=== PATIENT | female | born 1975 | race Caucasian/White ===

== ENCOUNTER → 2018-11-22 | Outpatient (CLI) | payer BC ==
[2018-11-22 14:41] LABS: BILIRUBIN,URINE NEGATIVE (NEG); CLARITY,URINE CLOUDY; COLOR,URINE AMBER; NITRITE,URINE NEGATIVE (NEG); PROTEIN,URINE 30 mg/dL (NEG-TRACE); UROBILINOGEN,URINE 0.2 mg/dL (0.2 mg/dL)
[2018-11-22 14:54] LABS: BACTERIA,URINE MODERATE /HPF (0-FEW); SQUAMOUS EPITHELIAL CELL,UR OCC /LPF
[2018-11-22 14:54] LABS: BASO # 0.1 x10^3/uL (0.0-0.2); BASO % 1 % (0-3); EOS # 0.2 x10^3/uL (0.0-0.7); EOS % 2 % (0-3); HEMOGLOBIN 12.5 g/dL (12.0-15.5); LYMPH # 2.5 x10^3/uL (1.0-4.8); LYMPH % 22 % (24-48); MEAN CORPUSCULAR HEMOGLOBIN 30 pg (25-35); MEAN CORPUSCULAR HGB CONC 34 g/dL (31-37); MEAN CORPUSCULAR VOLUME 88 fL (79-100); MONO % 9 % (0-9); NEUT # 7.5 x10^3uL (1.8-7.7); NEUT % 67 % (31-73); PLATELET COUNT 422 x10^3/uL (140-400); RED BLOOD COUNT 4.22 x10^6/uL (3.50-5.40); WHITE BLOOD COUNT 11.3 x10^3/uL (4.0-11.0)
[2018-11-22 15:09] LABS: ALBUMIN 3.6 g/dL (3.4-5.0); ALBUMIN/GLOBULIN RATIO 0.8 (1.0-1.7); CREATININE 0.7 mg/dL (0.6-1.0); GFR 91.3; POTASSIUM 3.7 mmol/L (3.5-5.1); TOTAL BILIRUBIN 0.2 mg/dL (0.2-1.0)
== END | disposition home or self-care (01) ==
LOC: SURGPAT 14:09
PROVIDERS: ATTEND Obstetrics & Gynecology
DX: Z01.818 Encounter for other preprocedural examination (principal); Z90.710 Acquired absence of both cervix and uterus; Z88.2 Allergy status to sulfonamides
CPT/HCPCS: 36415; 80053; 81001; 85025; 87086

== ENCOUNTER 2018-11-29 06:51 | Observation (INO) | payer BC ==
[~2018-11-29] VITALS: Ht 157.5 cm; Wt 80.7 kg
[2018-11-29] MEDS ORDERED: ONDANSETRON PF 4 MG/2 ML VIAL. IV PRN ×2 (07:00→11:00)
[2018-11-29] MEDS ORDERED: MORPHINE SULFATE 4 MG/ML VIAL. IV PRN ×2 (07:00→11:00)
[2018-11-29] MEDS ORDERED: LIDOCAINE 1% PF 2 ML VIAL. ID PRN (07:00)
[2018-11-29] MEDS ORDERED: HYDROmorphone 2 MG/ML VIAL IV PRN (07:00)
[2018-11-29] MEDS ORDERED: PROCHLORPERAZINE 10 MG/2 ML VIAL. IV PRN (07:00)
[2018-11-29] MEDS ORDERED: fentaNYL PF VIAL 100 MCG/2 ML VIAL IV PRN ×2 (07:00)
[2018-11-29] MEDS ORDERED: IV RINGERS,LACTATED 1000ML 1,000 ML IV SCH (07:00)
[2018-11-29] MEDS ORDERED: BUPIVACAINE-EPI 0.25%-1:200000 MPF 30 ML VIAL. ONE (07:16)
[2018-11-29] MEDS ORDERED: ESTROGENS, CONJ VAGINAL CREAM 30GM TUBE. ONE (07:16)
[2018-11-29] MEDS ORDERED: METHYLENE BLUE 1% 10 ML VIAL. ONE (07:16)
[2018-11-29 07:54] LABS: U PREG PATIENT NEGATIVE (NEG)
[2018-11-29] MEDS ORDERED: ROCURONIUM 50 MG/5 ML VIAL. ONE (08:06)
[2018-11-29] MEDS ORDERED: PROPOFOL 20 ML IV ONE (08:06)
[2018-11-29] MEDS ORDERED: ONDANSETRON PF 4 MG/2 ML VIAL. ONE (08:06)
[2018-11-29] MEDS ORDERED: DEXAMETHASONE SOD PHOS 20 MG/5 ML VIAL. ONE (08:06)
[2018-11-29] MEDS ORDERED: LIDOCAINE 2% PF Vial for OR 5 ML VIAL. ONE (08:06)
[2018-11-29] MEDS ORDERED: MIDAZOLAM HCL/PF 2 MG/2 ML VIAL. ONE (08:07)
[2018-11-29] MEDS ORDERED: fentaNYL PF VIAL 100 MCG/2 ML VIAL ONE ×2 (08:07→10:33)
[2018-11-29] MEDS ORDERED: SCOPOLAMINE 1.5MG PATCH. TD ONE (08:30)
[2018-11-29] MEDS ORDERED: SEVOFLURANE 61 TO 120 MINUTES. IH ONE (09:35)
[2018-11-29] MEDS ORDERED: KETOROLAC 30 MG/ML INJ FOR OR. INJ ONE (09:35)
[2018-11-29] MEDS ORDERED: NEOSTIGMINE 10 MG/10 ML VIAL. ONE (09:39)
[2018-11-29] MEDS ORDERED: GLYCOPYRROLATE 1 MG/5 ML VIAL. ONE (09:39)
[2018-11-29] MEDS ORDERED: PHENYLEPHRINE 10 MG/ML VIAL. ONE (10:26)
--- NOTE | 2018-11-29 10:48 | PDOC ---
BRIEF OPERATIVE NOTE Date: Nov 29, 2018 Pre-Op Diagnosis DUB, menorrhagia, cervical mass Post-Op Diagnosis same Procedure Performed removal of cervical mass, LAVH with bilateral salpingectomy Surgeon Dr. Vicky Valenzuela Shift Supervisor [employer] Processing Saira Reyes Anesthesiologist Dr. Day Anesthesia Type: General Blood Loss 120cc IV Fluid 1L Urine Output 300cc clear Specimens Obtained cervix, uterus and bilateral tubes Findings 4cm cervical mass, slightly enlarged RV uterus, normal bilateral tubes and ovaries Complications none Operative Note [id number] VICKY VALENZUELA MD Nov 29, 2018 10:48
[2018-11-29] MEDS ORDERED: NALOXONE 0.4 MG/ML VIAL. IV PRN (11:00)
[2018-11-29] MEDS ORDERED: HYDROcodone/APAP 5/325MG 1 TAB TABLET PO PRN (11:00)
[2018-11-29] MEDS ORDERED: diphenhydrAMINE 50 MG/ML VIAL IV PRN (11:00)
[2018-11-29] MEDS ORDERED: SIMETHICONE 80 MG TAB.CHEW PO PRN (11:00)
[2018-11-29] MEDS ORDERED: MAGNESIUM HYDROXIDE 2,400 MG/30 ML ORAL.SUSP. PO PRN (11:00)
[2018-11-29] MEDS ORDERED: LACTULOSE 20 GM/30 ML SOLUTION. PO PRN (11:00)
[2018-11-29] MEDS ORDERED: CALCIUM CARBONATE 500 MG TAB.CHEW PO PRN (11:00)
[2018-11-29] MEDS ORDERED: ZOLPIDEM 5 MG TABLET. PO PRN (11:00)
[2018-11-29] MEDS ORDERED: 0.9 % SODIUM CHLORIDE 10 ML DISP.SYRIN. IV PRN (11:00)
[2018-11-29] MEDS ORDERED: diphenhydrAMINE HCL 25 MG CAPSULE PO PRN (11:00)
[2018-11-29] MEDS ORDERED: MAG HYDROX/ALUMINUM HYD/SIMETH 30 ML ORAL.SUSP PO PRN (11:00)
--- NOTE | 2018-11-29 11:08 | OP ---
DATE OF SURGERY: 11/29/2018 PREOPERATIVE DIAGNOSES: Dysfunctional uterine bleeding, menorrhagia and cervical mass. POSTOPERATIVE DIAGNOSES: Dysfunctional uterine bleeding, menorrhagia and cervical mass. PROCEDURE: Removal of cervical mass, laparoscopic assisted vaginal hysterectomy with bilateral salpingectomy. SURGEON: Lizett Valenzuela M.D. CEMENT DESPATCH OPERATOR: Saira Reyes. ANESTHESIOLOGIST: Dr. Day. ANESTHESIA: General. ESTIMATED BLOOD LOSS: 120 mL. INTRAVENOUS FLUIDS: 1 liter of crystalloid. URINE OUTPUT: 300 mL clear. FINDINGS: A 4 cm cervical mass, slightly enlarged retroverted uterus, normal bilateral tubes and ovaries. COMPLICATIONS: None. DESCRIPTION OF PROCEDURE: This patient was taken to the operating room where general anesthesia was placed. The patient was placed in a dorsal lithotomy position in [facility]. The patient's abdomen and vagina were prepped and draped in the normal sterile fashion and a Pastor catheter was inserted under sterile technique. Upon my arrival, a timeout was performed. A weighted speculum was placed in the patient's vagina. A single tooth tenaculum was used to grasp the cervical mass and twist it off. I had to do this a few times, but I was able to get rid of the cervical mass and it was passed off as a separate specimen. Once the cervical mass was removed, 10 mL of 0.25% Marcaine with epinephrine was used to circumferentially inject around the cervix and the Valtchev uterine manipulator was placed through the endocervical os, locked on the single tooth tenaculum and the weighted speculum was then removed. Top gloves were discarded and changed. Attention was turned to the abdomen where a small supraumbilical skin incision was made with the scalpel. A curved Cristin was used to dissect through the subcuticular layer to the fascia. The 5 mm Visiport was used to directly into the abdominal cavity. Opening patient pressure was 3-4 mmHg. Carbon dioxide gas was used to appropriately insufflate the abdominal cavity to maintain a pressure of 15 mmHg. The patient was placed in Trendelenburg position. Right and left lower quadrant ports were placed under direct visualization after transilluminating the abdominal wall, making a small incision where it was clear of any vasculature and placing the 5 mm disposable ports under direct visualization without difficulty. A 2 mL of air was placed in the cuff. At this point, the scope was removed and placed in one of the lateral ports to look at the umbilical port. Once it was assured to be in, 2 mL of air was used to insufflate this cuff as well. The left tube and ovary were elevated. The ureter was seen coursing well below the ovary, but we went above the ovary, below the tube, doing a salpingectomy on the left, then crossing the left uterine ovarian pedicle with the LigaSure and then crossing the left round ligament. This was done exactly the same on the right side, elevating the right tube and ovary, they were both normal, going above the ovary, below the tube, doing a salpingectomy, crossing the right uterine ovarian pedicle as well as the right round ligament. This was all done with the LigaSure, cauterizing and cutting with the LigaSure. The bladder flap was created sharply starting at the lateral edges and then pushing cephalad on the manipulator to the head and using the [place] and one of the ports to lift the bladder flap and the monopolar hook to cut across. It did peel down nicely. Once this was down, the uterine vessels were obtained on both sides. The left side was easily obtained and hugging the uterus crossing contralaterally and staying right on that cervix, going down to the level of the uterosacral, cauterizing and cutting with the LigaSure through the cardinal and broad ligaments once the uterine vessel was obtained. On the right side, the uterine vessels were obtained and then taking a few more bites getting down toward the uterosacral as well. The cervix and uterus were completely free and blanched. At this point, all instruments were removed from the abdomen and attention was turned vaginally. The single tooth and Valtchev were removed. The weighted speculum was placed back in the patient's vagina. Thyroid Grant clamps were placed on the anterior and posterior lips of the cervix respectively. A scalpel was used to make a circumferential incision in the cervix. An open Ray-Willian 4 x 4 was used to gently push up the anterior bladder peritoneum and the anterior cul-de-sac was digitally and bluntly entered. The 4 x 4 was removed and the curved Duvall was placed in the anterior cul-de-sac. The cervix was elevated and the posterior cul-de-sac was sharply entered. A #0 Vicryl stitch was used to secure the posterior peritoneum to the vaginal cuff and it was tagged with a curved Cristin clamp. The short weighted vaginal speculum was removed and replaced with the long weighted vaginal Aleksandra speculum in the posterior cul-de-sac. That needle had been cut off that posterior tag. Curved James clamps x 2 were placed on the patient's left uterosacral ligament where they were doubly clamped with curved Heaneys, cut with Duvall scissors and suture ligated x 2 with 0 Vicryl. Second one was taken through the vaginal cuff securing uterosacral ligament to the vaginal cuff, tagging it with a straight Cristin clamp, cutting and passing the needle off. This was done exactly the same on the right side, double clamping the uterosacrals with curved James's, cutting with Duvall scissors, suture ligating x 2 with 0 Vicryl, and taking the second one through the vaginal cuff securing uterosacral ligament to the vaginal cuff, tagging it with a straight Cristin clamp and cutting and passing the needle off. The remaining pedicles on both sides were delineated with a Mixter, the curved right angle clamp and the vaginal LigaSure was used to cauterize the remaining pedicles on both sides. Cervix, uterus, bilateral tubes were delivered in total and passed off for permanent pathology. The long Allis was used to grasp the anterior bladder peritoneum. A sponge stick was used to examine the pedicles. There was some slight bleeding from the left side near the uterosacral. The vaginal LigaSure was used to cauterize this easily. The remaining pedicles looked good. The posterior cuff was cleared out of any clots and debris. The long weighted Aleksandra speculum was removed and replaced with a short weighted vaginal speculum. A 2-0 Vicryl was taken through the anterior bladder peritoneum, left uterosacral ligament, posterior peritoneum and right uterosacral ligament, thus closing the peritoneum in a pursestring like fashion. Once this was done, that 2-0 Vicryl stitch was clipped as well as both uterosacral tags. A full length 2-0 Vicryl was used to close the cuff in an anterior to posterior running locked fashion and it was tied to that posterior cuff tag. One interrupted stitch was placed in the middle where it was just slightly pulling with excellent results. The cuff was completely hemostatic. At this point, all instruments were removed and gloves were discarded and changed for a second look from above. All sponge, lap and needle counts had been correct x 2 by OR personnel before transitioning from below to above. At this point, a second look was taken from above where gas was reinsufflated. She was placed back in Trendelenburg position and copious irrigation revealed just slight oozing on the patient's left side near the cuff. Tisseel was placed over this with excellent results and then Lisa was placed under the cuff pedicle as well. Both ovaries were good and the remainder of the cuff was hemostatic. Nothing was welling up. Gas was released. It remained dry, so the air was taken out of all 3 trocars. The right and left lower quadrant ports were taken out under direct visualization. These too were hemostatic. Gas was released from the umbilical port. All three port sites were closed with 3-0 Monocryl in a subcuticular fashion and placed Steri-Strips over the top. The patient is currently being awakened from anesthesia. LIZETT VALENZUELA MD DR: HOLDEN/lissy JOB#: [id number] / [id number]
[2018-11-29 12:00] VITALS: BP 96/54
[2018-11-29 12:30] VITALS: BP 99/52
[2018-11-29] MEDS: oxyCODONE/APAP 5/325 1 TAB TABLET PO PRN ×2 (13:26→18:56)
[2018-11-29 14:10] VITALS: BP 101/58
[2018-11-29 15:00] VITALS: BP 98/57
[2018-11-29 15:04] VITALS: BP 99/55
[2018-11-29 21:33] VITALS: BP 111/62
[2018-11-30] MEDS: oxyCODONE/APAP 5/325 1 TAB TABLET PO PRN (02:49)
[2018-11-30 05:11] VITALS: BP 91/41
[2018-11-30 06:13] LABS: CALCIUM 8.8 mg/dL (8.5-10.1); CREATININE 0.8 mg/dL (0.6-1.0); GFR 78.3; POTASSIUM 4.3 mmol/L (3.5-5.1)
--- NOTE | 2018-11-30 08:37 | PDOC ---
SURGICAL PROGRESS NOTE Subjective Doing well without complaints. Scant VB. Voiding without catheter and tolerating regular diet Vital Signs Vital Signs Date Time Temp Pulse Resp B/P (MAP) Pulse Ox O2 Delivery O2 Flow Rate FiO2 11/30/18 05:11 98.5 86 18 91/41 (58) 94 Room Air 98.5 86 11/29/18 12:00 2.0 I&O Intake and Output 11/30/18 07:00 Intake Total 3150 ml Output Total 1190 ml Balance 1960 ml Intake Oral 1700 ml IV Total 1050 ml Blood Product IV Normal Saline Flush 400 ml Output Urine Total 1070 ml Estimated Blood Loss 120 ml # Voids 7 PATIENT HAS A CROOKS: No General: Alert, Oriented X3, Cooperative, No acute distress HEENT: Atraumatic Heart: Regular rate Abdomen: Soft, No tenderness, Other (all port sites c/d/i) Extremities: No clubbing, No cyanosis, No edema, No tenderness/swelling Skin: No rashes, No breakdown Neuro: Normal speech Psych/Mental Status: Mental status NL, Mood NL Labs Laboratory Tests Test 11/29/18 06:50 11/30/18 05:37 Urine Test Negative (NEG) Hematocrit 31.8 % (36.0-47.0) Sodium Level 139 mmol/L (136-145) Potassium Level 4.3 mmol/L (3.5-5.1) Chloride Level 105 mmol/L (98-107) Carbon Dioxide Level 25 mmol/L (21-32) Anion Gap 9 (6-14) Blood Urea Nitrogen 11 mg/dL (7-20) Creatinine 0.8 mg/dL (0.6-1.0) Estimated GFR (Cockcroft-Gault) 78.3 Glucose Level 151 mg/dL (70-99) Calcium Level 8.8 mg/dL (8.5-10.1) Laboratory Tests Test 11/30/18 05:37 Hematocrit 31.8 % (36.0-47.0) Sodium Level 139 mmol/L (136-145) Potassium Level 4.3 mmol/L (3.5-5.1) Chloride Level 105 mmol/L (98-107) Carbon Dioxide Level 25 mmol/L (21-32) Anion Gap 9 (6-14) Blood Urea Nitrogen 11 mg/dL (7-20) Creatinine 0.8 mg/dL (0.6-1.0) Estimated GFR (Cockcroft-Gault) 78.3 Glucose Level 151 mg/dL (70-99) Calcium Level 8.8 mg/dL (8.5-10.1) I have reviewed the following labs, vitals, nursing Cardiovascular: No pertinent hx Pulmonary: No pertinent hx GI: No pertinent hx Psych: Anxiety Assessment/Plan POD #1 s/p LAVH/bilateral salpingectomy and removal of cervical mass routine po care d/c to home NPV x 6 weeks light/limited activity x 2 weeks keep scheduled follow up in one week already has pain pills filled at home NO driving while on narcotic pain meds ok for OTC ibuprofen if needed call or return sooner for any other questions or concerns not limited to but including pain unrelieved with pain meds, increased or unexplained vaginal bleeding or T>100.4 LIZETT VALENZUELA MD Nov 30, 2018 08:36
--- NOTE | 2018-11-30 08:39 | PDOC3 ---
Discharge Summary Visit Information Date of Admission: Nov 29, 2018 Date of Discharge: Nov 30, 2018 Final Diagnosis menorrhagia and cervical mass Brief Hospital Course Allergies Allergies Coded Allergies Type Severity Reaction Last Updated Verified Sulfa (Sulfonamide Antibiotics) Adverse Reaction Intermediate Nausea and Vomiting 11/22/18 Yes Vital Signs Vital Signs Date Time Temp Pulse Resp B/P (MAP) Pulse Ox O2 Delivery O2 Flow Rate FiO2 11/30/18 05:11 98.5 86 18 91/41 (58) 94 Room Air 98.5 86 11/29/18 12:00 2.0 Lab Results Laboratory Tests Test 11/29/18 06:50 11/30/18 05:37 Urine Test Negative (NEG) Hematocrit 31.8 % (36.0-47.0) Sodium Level 139 mmol/L (136-145) Potassium Level 4.3 mmol/L (3.5-5.1) Chloride Level 105 mmol/L (98-107) Carbon Dioxide Level 25 mmol/L (21-32) Anion Gap 9 (6-14) Blood Urea Nitrogen 11 mg/dL (7-20) Creatinine 0.8 mg/dL (0.6-1.0) Estimated GFR (Cockcroft-Gault) 78.3 Glucose Level 151 mg/dL (70-99) Calcium Level 8.8 mg/dL (8.5-10.1) Laboratory Tests Test 11/30/18 05:37 Hematocrit 31.8 % (36.0-47.0) Sodium Level 139 mmol/L (136-145) Potassium Level 4.3 mmol/L (3.5-5.1) Chloride Level 105 mmol/L (98-107) Carbon Dioxide Level 25 mmol/L (21-32) Anion Gap 9 (6-14) Blood Urea Nitrogen 11 mg/dL (7-20) Creatinine 0.8 mg/dL (0.6-1.0) Estimated GFR (Cockcroft-Gault) 78.3 Glucose Level 151 mg/dL (70-99) Calcium Level 8.8 mg/dL (8.5-10.1) Brief Hospital Course Ms. Rea is a 43 old female who presented with bleeding cervical mass. She underwent removal of her cervical mass and LAVH with bilateral salpingectomy yesterday without complicaitons. She has had an unremarkable postoperative course and is voiding without catheter, tolerating regular diet, AF VSS and desiring to go home. Discharge Information Condition at Discharge: Improved Follow Up: Weeks Disposition/Orders: D/C to Home Scheduled Info (No Known Medications Prior To Admisstion) Each, 1 EACH MC DAILY for na, ( Reported) Entered as Reported by: ROSAS SCHMITT on 11/22/18 [id number] Last Action: HELD on 11/29/18818 by LIZETT VALENZUELA Patient Instructions Patient Instructions POD #1 s/p LAVH/bilateral salpingectomy and removal of cervical mass routine po care d/c to home NPV x 6 weeks light/limited activity x 2 weeks keep scheduled follow up in one week already has pain pills filled at home NO driving while on narcotic pain meds ok for OTC ibuprofen if needed call or return sooner for any other questions or concerns not limited to but including pain unrelieved with pain meds, increased or unexplained vaginal bleeding or T>100.4 LIZETT VALENZUELA MD Nov 30, 2018 08:39
--- NOTE | 2018-12-04 17:08 | PATHOLOGY ---
[facility] Accession Number: [id number] . 01 Material submitted: . PART A: UTERUS, BILATERAL FALLOPIAN TUBES PART B: CERVICAL MASS . 01 Clinical history: . Mass . 02 Diagnosis: A. Uterus and bilateral attached fallopian tubes, laparoscopic-assisted vaginal hysterectomy with bilateral salpingectomy: - Chronic cervicitis with focal squamous metaplasia. - Proliferative endometrium. - Adenomyosis, uterine corpus. 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 - Subserosal leiomyoma, uterine corpus, measuring 0.6 cm. - Left paratubal cyst. - Congestion of bilateral fallopian tubes. . B. 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 See comment. (JPM:mml/jessica; 12/04/2018) [facility]/12/04/2018 . 02 Comment: Sections of the cervical mass reveal a polypoid submucosal smooth muscle tumor which appears to have originated in the uterine corpus and is focally lined by endometrium. The tumor shows surface ulceration and necrosis. The tumor is hypercellular and focally mitotically active, but does not show significant nuclear atypia or evidence of coagulative tumor necrosis. 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 The case is also examined by Dr. Flores, who has an interest in [employer] pathology. He concurs with the diagnosis. Follow up recommended. (JPM:jessica; 12/04/2018) . 02 Electronically signed: . Gamal Hyman MD, Pathologist NPI- [id number] . 01 Gross description: . A. The specimen is received in formalin, labeled "Tia Rea, uterus, bilateral fallopian tubes". Received is a 125 g, 9.5 x 6.6 x 4.5 cm uterus with attached cervix and attached fallopian tubes, weighing 4 g each. The uterine serosa is pink-martinez and smooth in appearance. The 2.3 cm cervical os is surrounded by light martinez, granular to pale martinez, smooth ectocervical mucosa. The uterus is oriented using the peritoneal reflection and the anterior paracervical margin is inked black. The uterus is opened laterally to reveal a light brown endocervical canal measuring 2.1 cm in length. The endometrial cavity is triangular measuring 5.2 cm in length by 2.8 cm in width. The endometrium is pale martinez, glistening in appearance and measures 0.1 cm in thickness. In the anterior aspect, there is a possibly macerated endometrial polyp measuring 2.1 x 1.0 x 1.0 cm. The possible polyp is removed and the margin is inked black. Serial sectioning reveals a martinez-pink, trabeculated myometrium measuring 2.1 cm in thickness, displaying a single subserosal fibroid measuring 0.6 cm in maximum dimensions. . The left fimbriated fallopian tube measures 5.7 cm in length by up to 0.7 cm in diameter displaying an attached paratubal cyst measuring 0.9 cm filled with yellow serous fluid. The serosal surface is inked black. Sectioning reveals a patent lumen. . The right fimbriated fallopian tube measures 5.9 cm in length by up to 0.8 cm in diameter. Sectioning reveals a pinpoint to patent lumen. The specimen is submitted representatively as follows: . A1 12:00 cervix A2 6:00 cervix A3 anterior endomyometrium A4 posterior endomyometrium A5-A6 entire possible endometrial polyp, bisected A7 subserosal fibroid A8 international representative sections of left and right fallopian tubes, differentially inked. . B. The specimen is received in formalin, labeled "Tia Rea, cervical mass". Received are multiple segments of pink-martinez to dusky houser-martinez soft tissue measuring 4.4 x 2.8 x 2.6 cm in aggregate dimensions, and having an aggregate weight of 8 g. The surgical margins are not grossly distinct. Sectioning reveals white-martinez to pink-houser cut surfaces throughout. Livestock Nutritionist sections from the smaller four segments are submitted in cassette B1. Livestock Nutritionist sections from the larger segment are submitted in cassettes B1 through B4. (CAA; 11/30/2018) QAC/QAC . 02 Pathologist provided ICD-10: D25.0, D25.2, N72, N80.0, N83.8 . 02 CPT . 791700 Specimen Comment: A courtesy copy of this report has been sent to Specimen Comment: [phone], . Specimen Comment: Report sent to / DR SUTHERLAND Performed at: 01 [facility] [address] [facility] [address], [place] [id number] MD Zoran North MD Phone: [phone] Performed at: 02 [facility] [address] [place] [id number] MD Gamal Hyman MD Phone: [phone]
== END 2018-11-30 10:00 | disposition home or self-care (01) ==
LOC: SURG 06:51 → EDUNIT# 08:30 → 3 NORTH 11:00
PROVIDERS: ADMIT Obstetrics & Gynecology; ATTEND Obstetrics & Gynecology
DX: N92.0 Excessive and frequent menstruation with regular cycle (principal); N93.8 Other specified abnormal uterine and vaginal bleeding; N85.4 Malposition of uterus
CPT/HCPCS: 36415; 58552; 80048; 81025; 85014; 86850; 86900; 86901; 96374; A7015; G0378; G0379; J0696; J0780; J1100; J1885; J2001; J2250; J2270; J2405; J2704; J2710; J3010; J3490; J7030; J7120; Q9968